=== PATIENT | male | born 1930 | race Hispanic/Latino ===

== ENCOUNTER 2016-10-14 19:45 | Emergency (ER) | payer MEDICARE ==
[2016-10-14 19:45] VITALS: BMI 33.5
[2016-10-14 19:51] VITALS: BP 146/78; RESP 18; TEMP 97.8; O2SAT 100
--- NOTE | 2016-10-14 20:17 | ED PDOC ---
HPI: Trauma/Fall - HPI Time Seen by Provider: 10/14/16 19:48 Chief Complaint (Nursing): Rib Injury History Per: Patient History/Exam Limitations: no limitations Onset/Duration Of Symptoms: Mins Injury Occurred (Timing): Just Before Arrival Severity: Moderate Associated Symptoms: denies: LOC Additional History Per: Patient, Family Additional Complaint(s): The pt is a 86yo male with PMHx of COPD, CABG, CAD, HTN presents to the ED for evaluation of left front chest and left elbow pain. Pt reports he was walking his dog and was distracted for a while and when the dog moved forward, pt lost his balance and fell forward. Pt denies any head injury, neck pain, numbness and tingling. Pt reports his chest pain is not present while resting, rather it only occurs when he is twisting his torso. Pt additionally denies loc, abdominal pain, nausea and vomiting. At present, offers no additional medical complaints. Past Medical History Reviewed: Historical Data, Nursing Documentation, Vital Signs Vital Signs: Last Vital Signs Temp 97.8 F 10/14/16 19:49 Pulse 68 10/14/16 19:49 Resp 18 10/14/16 19:49 BP 146/78 10/14/16 19:49 Pulse Ox 100 10/14/16 20:23 - Medical History PMH: Bronchitis, CAD, COPD, Emphysema, HTN, Hypercholesterolemia Denies: Pneumonia, Chronic Kidney Disease - Surgical History Surgical History: CABG, Cholecystectomy - Family History Family History: States: Unknown Family Hx - Home Medications Home Medications: Ambulatory Orders Medication Instructions Recorded Aspirin [Aspirin EC] 81 mg PO DAILY 09/27/14 Metoprolol Succinate [Toprol XL] 50 mg PO DAILY 09/27/14 Enalapril Maleate [Vasotec] 10 mg PO DAILY 10/14/16 Finasteride [Proscar] 10/14/16 Simvastatin [Zocor] 10/14/16 Terazosin [Hytrin] 1 tab PO DAILY 10/14/16 - Allergies Allergies/Adverse Reactions: Allergies Allergy/AdvReac Type Severity Reaction Status Date / Time No Known Allergies Allergy Verified 10/26/15 19:52 Review of Systems ROS Statement: Except As Marked, All Systems Reviewed And Found Negative Cardiovascular: Positive for: Chest Pain (left sided chest pain w/ movement) Musculoskeletal: Positive for: Arm Pain (left elbow pain) Physical Exam - Reviewed Nursing Documentation Reviewed: Yes Vital Signs Reviewed: Yes - Physical Exam Appears: Positive for: Well, Non-toxic, No Acute Distress Head Exam: Positive for: ATRAUMATIC, NORMAL INSPECTION, NORMOCEPHALIC Skin: Positive for: Normal Color, Warm, Dry Eye Exam: Positive for: Normal appearance, EOMI, PERRL Neck: Positive for: Normal, Supple Cardiovascular/Chest: Positive for: Regular Rate, Rhythm (mild to moderate left sided anterior chest wall tenderness ) Respiratory: Positive for: Normal Breath Sounds. Negative for: Respiratory Distress Pulses-Radial (L): 2+ Gastrointestinal/Abdominal: Positive for: Normal Exam, Soft, Other (no ecchymosis to abdomen noted). Negative for: Tenderness Extremity: Positive for: Normal ROM (full ROM actively left lebow), Capillary Refill (< 2 seconds), Other (ecchymosis noted in left elbow) Neurologic/Psych: Positive for: Alert, Oriented - ECG ECG: Positive for: Interpreted By Me ECG Rhythm: Positive for: Sinus Rhythm. Negative for: ST/T Changes Rate: 64 O2 Sat by Pulse Oximetry: 100 - Radiology X-Ray: Interpreted by Me (L elbow and L rib series x-ray) X-Ray Interpretation: No Acute Disease - Progress ED Course And Treament: Incentive spirometer given and RT gave pt. instructions on its proper use. Medical Decision Making Medical Decision Making: Time: 2001 Impression: Chest pain, left elbow pain s/p fall Plan: -- XR left elbow -- XR Chest and left ribs --Reassess Scribe Attestation: All records were documented by Tracy Villafana, acting as a Scribe for CIRILO Stovall. Provider Scribe Attestation: All medical record entries made by the Scribe were at my direction and personally dictated by me. I have reviewed the chart and agree that the record accurately reflects my personal performance of the history, physical exam, medical decision making, and the department course for this patient. I have also personally directed, reviewed, and agree with the discharge instructions and disposition. Disposition - Clinical Impression Clinical Impression: Contusion, chest wall, Elbow contusion - Patient ED Disposition Is Patient to be Admitted: No - Disposition Disposition: Routine/Home Disposition Time: 22:05 Condition: STABLE Instructions: How to Use an Incentive Spirometer (ED), Elbow Sprain (ED), Chest Wall Pain (ED)
[2016-10-14 23:49] VITALS: PULSE 64
--- NOTE | 2016-10-15 08:42 | RAD ---
PROCEDURE: Radiographs of the left elbow. HISTORY: trauma COMPARISON: No prior. FINDINGS: BONES: Normal. No fracture. JOINTS: Normal. No osteoarthritis. SOFT TISSUES: Normal. JOINT EFFUSION: None. OTHER FINDINGS: None IMPRESSION: Unremarkable radiographs of the left elbow.
--- NOTE | 2016-10-15 10:23 | CARD ---
APPROVED REPORT EKG Measurement Heart [id number] <Conclusion> Normal sinus rhythm Right bundle branch block Inferior infarct, age undetermined Abnormal ECG
== END 2016-10-14 22:18 | disposition home or self-care (01) ==
LOC: H.ER 19:45
DX: S20.212A Contusion of left front wall of thorax, initial encounter (principal); S50.02XA Contusion of left elbow, initial encounter; W01.0XXA Fall on same level from slipping, tripping and stumbling without subsequent striking against object, initial encounter; Y93.K1 Activity, walking an animal; Y92.480 Sidewalk as the place of occurrence of the external cause; I25.10 Atherosclerotic heart disease of native coronary artery without angina pectoris; I10 Essential (primary) hypertension; Z95.1 Presence of aortocoronary bypass graft; Z87.891 Personal history of nicotine dependence

== ENCOUNTER 2017-06-26 00:46 | Emergency (ER) | payer MEDICARE ==
[2017-06-26 00:46] VITALS: BMI 33.5
[2017-06-26 01:01] VITALS: PULSE 98; TEMP 98; O2SAT 100
[2017-06-26 01:09] VITALS: BP 168/79
[2017-06-26] MEDS ORDERED: Albuterol 0.083% Inhal Sol (2.5 mg/3 mL) UD ONE (01:47)
[2017-06-26] MEDS: Albuterol 0.083% Inhal Sol (2.5 mg/3 mL) UD INH ONE (01:48)
[2017-06-26 02:07] LABS: BASO # 0.1 K/uL (0.0-0.2); BASO % 0.9 % (0.0-2.0); EOS % 0.2 % (0.0-4.0); HEMOGLOBIN 13.6 g/dL (12.0-18.0); LYMPH % 42.8 % (20.0-40.0); MEAN CELL VOLUME 89.5 fl (80.0-94.0); MEAN CORPUSCULAR HEMOGLOBIN 28.8 pg (27.0-31.0); MEAN CORPUSCULAR HGB CONC 32.2 g/dL (33.0-37.0); MEAN PLATELET VOLUME 8.6 fl (7.2-11.7); MONO # 0.9 K/uL (0.0-0.8); MONO % 6.6 % (0.0-10.0); NEUT % 49.5 % (50.0-75.0); NRBC % 0.1 % (0.0-0.0); RBC 4.7 Mil/uL (4.40-5.90); RED CELL DISTRIBUTION WIDTH 14.7 % (11.5-14.5); WHITE BLOOD COUNT 14.1 K/uL (4.8-10.8)
--- NOTE | 2017-06-26 02:07 | ED PDOC ---
HPI: SOB/CHF/COPD Time Seen by Provider: 06/26/17 00:50 Chief Complaint (Nursing): Shortness Of Breath Chief Complaint (Provider): Shortness Of Breath History Per: Patient History/Exam Limitations: no limitations Onset/Duration Of Symptoms: Days (x3) Current Symptoms Are (Timing): Still Present Recently: Treated By A Physician Additional Complaint(s): Vic Garrett is an 86-year-old male with a past medical history of COPD, who presents to the emergency department complaining of shortness of breath for 3 days. Saw PMD days ago and was started on steroids. Patient reports using nebulizer treatments at home without improvement. States he woke up tonight very short of breath, prompting ED visit. PMD: Dr. Pietro Ruiz Order Worker: Dr. Graff Past Medical History Reviewed: Historical Data, Nursing Documentation, Vital Signs Vital Signs: Last Vital Signs Temp 98 F 06/26/17 00:58 Pulse 98 H 06/26/17 00:58 Resp 18 06/26/17 01:10 BP 168/79 H 06/26/17 00:58 Pulse Ox 100 06/27/17 04:24 - Medical History PMH: Bronchitis, CAD, COPD, Emphysema, HTN, Hypercholesterolemia Denies: Pneumonia, Chronic Kidney Disease - Surgical History Surgical History: CABG, Cholecystectomy - Family History Family History: States: Unknown Family Hx - Social History Ex-Smoker (has not smoked in the last 12 months): Yes - Home Medications Home Medications: Ambulatory Orders Medication Instructions Recorded Aspirin [Aspirin EC] 81 mg PO DAILY 09/27/14 Metoprolol Succinate [Toprol XL] 50 mg PO DAILY 09/27/14 Enalapril Maleate [Vasotec] 10 mg PO DAILY 10/14/16 Simvastatin [Zocor] 40 mg PO DAILY 10/14/16 Azithromycin [Zithromax] 250 mg PO DAILY #6 tab 06/26/17 predniSONE [predniSONE Tab] 20 mg PO DAILY 06/26/17 - Allergies Allergies/Adverse Reactions: Allergies Allergy/AdvReac Type Severity Reaction Status Date / Time No Known Allergies Allergy Verified 06/26/17 00:57 Review of Systems ROS Statement: Except As Marked, All Systems Reviewed And Found Negative Constitutional: Negative for: Fever Cardiovascular: Negative for: Chest Pain Respiratory: Positive for: Shortness of Breath. Negative for: Other (dyspnea) Physical Exam - Reviewed Nursing Documentation Reviewed: Yes Vital Signs Reviewed: Yes - Physical Exam Appears: Positive for: Non-toxic, No Acute Distress Head Exam: Positive for: ATRAUMATIC, NORMAL INSPECTION, NORMOCEPHALIC Skin: Positive for: Normal Color, Warm, Dry Eye Exam: Positive for: EOMI, Normal appearance, PERRL Neck: Positive for: Normal, Painless ROM Cardiovascular/Chest: Positive for: Regular Rate, Rhythm. Negative for: Murmur Respiratory: Positive for: Wheezing (wheezing noted; R > L lung patrick). Negative for: Respiratory Distress, Other (appears dyspneic) Gastrointestinal/Abdominal: Positive for: Normal Exam, Soft. Negative for: Tenderness Extremity: Positive for: Normal ROM. Negative for: Deformity Neurologic/Psych: Positive for: Alert, Oriented (x3), Other (speaking full sentences). Negative for: Motor/Sensory Deficits - Laboratory Results Result Diagrams: 06/26/17 01:49 06/26/17 01:49 - ECG O2 Sat by Pulse Oximetry: 100 (RA) Pulse Ox Interpretation: Normal Medical Decision Making Medical Decision Making: Time: 01:32 Initial Plan:short of breath --CMP --CBC w/ differential --Chest X-ray --Albuterol 2.5mg INH --Peak Flow pre/post treatment --Reevaluation Chest x-ray is negative, viewed by me. pt sleeping comfortably, not tachypneic. feels better. Labs reviewed, no significant abnormalities. Time: 4:53 Patient is medically stable for discharge. Scribe Attestation: Documented by Jovanna Radford, acting as a scribe for Hope Hugo MD Provider Scribe Attestation: All medical record entries made by the Scribe were at my direction and personally dictated by me. I have reviewed the chart and agree that the record accurately reflects my personal performance of the history, physical exam, medical decision making, and the department course for this patient. I have also personally directed, reviewed, and agree with the discharge instructions and disposition. Disposition - Clinical Impression Clinical Impression: COPD (chronic obstructive pulmonary disease) - Patient ED Disposition Is Patient to be Admitted: No Counseled Patient/Family Regarding: Studies Performed, Diagnosis, Need For Followup - Disposition Referrals: Pietro Ruiz MD [Primary Care Provider] - Disposition: Routine/Home Disposition Time: 03:00 Condition: IMPROVED Additional Instructions: follow up with your primary doctor in 2 days return to the ED with any worsening or concerning symptoms Prescriptions: Azithromycin [Zithromax] 250 mg PO DAILY #6 tab Instructions: COPD (Chronic Obstructive Pulmonary Disease) (ED) Forms: [employer] (Gabonese)
[2017-06-26 02:18] LABS: ALB/GLOB RATIO 1.4 (1.0-2.1); ALT/SGPT 33 U/L (21-72); AST/SGOT 22 U/L (17-59); BLOOD UREA NITROGEN 18 mg/dl (9-20); CALCIUM 8.9 mg/dL (8.4-10.2); GFR AFRICAN-AMERICAN > 60; GFR NON-AFRICAN AMERICAN > 60
[2017-06-26 03:14] VITALS: RESP 18
--- NOTE | 2017-06-26 11:24 | RAD ---
HISTORY: short of breath COMPARISON: Chest radiograph dated 10/25/2015 TECHNIQUE: Chest PA and lateral FINDINGS: LUNGS: Stable chronic prominence of the bilateral interstitial markings. No focal consolidation. PLEURA: No significant pleural effusion identified. No pneumothorax apparent. CARDIOVASCULAR: Prior sternotomy with sternal wires and surgical clips redemonstrated. Atherosclerotic aortic calcifications. Cardiomediastinal silhouette unchanged. OSSEOUS STRUCTURES: Unchanged. VISUALIZED UPPER ABDOMEN: Right upper quadrant surgical clips redemonstrated. OTHER FINDINGS: None. IMPRESSION: Stable chronic prominence of the bilateral interstitial markings. No focal consolidation or pleural effusion
== END 2017-06-26 05:50 | disposition home or self-care (01) ==
LOC: H.ER 00:46
DX: J44.9 Chronic obstructive pulmonary disease, unspecified (principal); E78.00 Pure hypercholesterolemia, unspecified; I10 Essential (primary) hypertension; I25.10 Atherosclerotic heart disease of native coronary artery without angina pectoris; Z79.82 Long term (current) use of aspirin; Z95.1 Presence of aortocoronary bypass graft

== ENCOUNTER 2017-09-08 07:36 | Inpatient (IN) | payer MEDICARE ==
[2017-09-08 07:49] VITALS: BMI 36.0
[2017-09-08] MEDS ORDERED: Sodium Chloride 0.9% 500 ML IV STA (08:14)
--- NOTE | 2017-09-08 08:21 | ED PDOC ---
HPI: Chest Pain Time Seen by Provider: 09/08/17 07:50 Chief Complaint (Nursing): Chest Pain Chief Complaint (Provider): Chest Pain History Per: Patient, Family (son) History/Exam Limitations: no limitations Onset/Duration Of Symptoms: Days (x1) Current Symptoms Are (Timing): Still Present Additional Complaint(s): 87 year old male with medical history of hypertension, diabetes and hypercholesterolemia, presents to the emergency department with son for an evaluation of left-sided chest pain associated with bilateral arm pain ongoing since last night. Son reported patient has been depressed since a few weeks ago which has been causing his blood pressure to rise. Patient denied any nausea, vomiting, diarrhea, abdominal pain, shortness of breath, headache, numbness, tingling, suicidal or homicidal ideation. Of note, patient was recently seen in ED for congestion issues. PMD: Pietro Ruiz MD Cardio: Merrill Inman MD Past Medical History Vital Signs: Last Vital Signs Temp 98.3 F 09/08/17 07:48 Pulse 62 09/08/17 09:44 Resp 16 09/08/17 09:44 BP 142/81 09/08/17 09:44 Pulse Ox 95 09/08/17 10:53 - Medical History PMH: Bronchitis, CAD, COPD, Emphysema, HTN, Hypercholesterolemia Denies: Pneumonia, Chronic Kidney Disease - Surgical History Surgical History: CABG, Cholecystectomy - Family History Family History: States: Unknown Family Hx - Social History Current smoker - smoking cessation education provided: No Alcohol: None Drugs: Denies - Home Medications Home Medications: Ambulatory Orders Medication Instructions Recorded Aspirin [Aspirin EC] 81 mg PO DAILY 09/27/14 Metoprolol Succinate [Toprol XL] 50 mg PO DAILY 09/27/14 Enalapril Maleate [Vasotec] 10 mg PO DAILY 10/14/16 Simvastatin [Zocor] 40 mg PO DAILY 10/14/16 Azithromycin [Zithromax] 250 mg PO DAILY #6 tab 06/26/17 predniSONE [predniSONE Tab] 20 mg PO DAILY 06/26/17 - Allergies Allergies/Adverse Reactions: Allergies Allergy/AdvReac Type Severity Reaction Status Date / Time No Known Allergies Allergy Verified 06/26/17 00:57 Review of Systems ROS Statement: Except As Marked, All Systems Reviewed And Found Negative Cardiovascular: Positive for: Chest Pain (left-sided) Respiratory: Negative for: Shortness of Breath Gastrointestinal: Negative for: Nausea, Vomiting, Abdominal Pain, Diarrhea Musculoskeletal: Positive for: Arm Pain (bilateral) Neurological: Negative for: Numbness (or tingling), Headache Psych: Positive for: Depression Physical Exam - Reviewed Nursing Documentation Reviewed: Yes Vital Signs Reviewed: Yes - Physical Exam Appears: Positive for: Non-toxic, No Acute Distress Head Exam: Positive for: ATRAUMATIC, NORMAL INSPECTION, NORMOCEPHALIC Skin: Positive for: Normal Color Eye Exam: Positive for: Normal appearance ENT: Positive for: Normal ENT Inspection Neck: Positive for: Normal Cardiovascular/Chest: Positive for: Regular Rate, Rhythm Respiratory: Positive for: Normal Breath Sounds. Negative for: Decreased Breath Sounds, Respiratory Distress Gastrointestinal/Abdominal: Positive for: Normal Exam, Soft. Negative for: Tenderness Back: Positive for: Normal Inspection. Negative for: L CVA Tenderness, R CVA Tenderness Extremity: Positive for: Normal ROM (upper/lower). Negative for: Pedal Edema ( bilateral), Calf Tenderness (bilateral) Neurologic/Psych: Positive for: Alert, Oriented - Laboratory Results Result Diagrams: 09/08/17 08:30 09/08/17 08:30 Interpretation Of Abn Labs: no acute - ECG ECG: Positive for: Interpreted By Me, Viewed By Me Interpretation Of Abn EKG: RBBB O2 Sat by Pulse Oximetry: 95 (RA) Pulse Ox Interpretation: Normal - Radiology X-Ray: Read By Radiologist X-Ray Interpretation: No Acute Disease - Progress ED Course And Treament: [id number]: Stable. AAOx3. Pain free. Tolerated PO. Spoke with [facility] resident. Will need admit for ACS workup as pt. with multiple risk factors. Medical Decision Making Medical Decision Making: Initial Impression: Chest pain; Bilateral arm pain Initial Plan: * EKG * CMP * Troponin I * CBC * CXR * Aspirin 325mg PO * NS 500ml IV per 100mls/hr Time: 1011 --CXR FINDINGS: LUNGS: No focal consolidation so far as can be seen in this radiograph with patient in apical lordotic positioning PLEURA: No significant pleural effusion identified, no pneumothorax apparent. CARDIOVASCULAR: Re- demonstrated are sternotomy wires. Heart size is within range of normal. OSSEOUS STRUCTURES: No significant abnormalities. VISUALIZED UPPER ABDOMEN: Normal. OTHER FINDINGS: None. IMPRESSION: No acute infiltrates so far as can be seen as detailed above Scribe Attestation: Documented by Diamond Harris, acting as a scribe for Neeraj Mueller MD. Provider Scribe Attestation: All medical record entries made by the Scribe were at my direction and personally dictated by me. I have reviewed the chart and agree that the record accurately reflects my personal performance of the history, physical exam, medical decision making, and the department course for this patient. I have also personally directed, reviewed, and agree with the discharge instructions and disposition. Disposition - Clinical Impression Clinical Impression: Chest pain - Patient ED Disposition Is Patient to be Admitted: Yes Counseled Patient/Family Regarding: Studies Performed, Diagnosis - Disposition Disposition Time: 12:13 Condition: FAIR - Pt Status Changed To: Hospital Disposition Of: Observation - POA Present On Arrival: None
[2017-09-08 08:38] LABS: BASO # 0.1 K/uL (0.0-0.2); BASO % 0.8 % (0.0-2.0); EOS # 0.2 K/uL (0.0-0.7); EOS % 2.1 % (0.0-4.0); HEMOGLOBIN 14.6 g/dL (12.0-18.0); LYMPH # 4.9 K/uL (1.0-4.3); LYMPH % 49.2 % (20.0-40.0); MEAN CELL VOLUME 89.8 fl (80.0-94.0); MEAN CORPUSCULAR HEMOGLOBIN 30.1 pg (27.0-31.0); MEAN CORPUSCULAR HGB CONC 33.5 g/dL (33.0-37.0); MONO # 0.6 K/uL (0.0-0.8); MONO % 6.2 % (0.0-10.0); NEUT # 4.1 K/uL (1.8-7.0); NEUT % 41.7 % (50.0-75.0); NRBC % 0.1 % (0.0-0.0); RBC 4.86 Mil/uL (4.40-5.90); RED CELL DISTRIBUTION WIDTH 15.4 % (11.5-14.5); WHITE BLOOD COUNT 9.9 K/uL (4.8-10.8)
[2017-09-08 08:49] LABS: ALB/GLOB RATIO 1.3 (1.0-2.1); ALBUMIN 4.1 g/dL (3.5-5.0); ALT/SGPT 34 U/L (21-72); AST/SGOT 24 U/L (17-59); BLOOD UREA NITROGEN 13 mg/dl (9-20); CALCIUM 9.2 mg/dL (8.4-10.2); GFR AFRICAN-AMERICAN > 60; GFR NON-AFRICAN AMERICAN > 60
--- NOTE | 2017-09-08 10:13 | RAD ---
HISTORY: dyspnea COMPARISON: Comparison chest 06/26/2017. Study is limited due to apical lordotic patient positioning FINDINGS: LUNGS: No focal consolidation so far as can be seen in this radiograph with patient in apical lordotic positioning PLEURA: No significant pleural effusion identified, no pneumothorax apparent. CARDIOVASCULAR: Re- demonstrated are sternotomy wires. Heart size is within range of normal. OSSEOUS STRUCTURES: No significant abnormalities. VISUALIZED UPPER ABDOMEN: Normal. OTHER FINDINGS: None. IMPRESSION: No acute infiltrates so far as can be seen as detailed above
--- NOTE | 2017-09-08 10:35 | CARD ---
APPROVED REPORT EKG Measurement Heart [id number] [id number] <Conclusion> Normal sinus rhythm Right bundle branch block Inferior infarct, age undetermined Abnormal ECG
--- NOTE | 2017-09-08 12:47 | CP.PCM.HP ---
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 Patient has strong cardiac hx including CABG x4 and IWMI. He also states that since his 2 weeks ago he has been feeling "worse". Denies SOB, palpitations, fever, vomiting , nausea, headache, changes in urination or stools. As per patient he has been taking all his meds as prescribed. 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 At this time patient denies CP, he admits heartburn, acid reflux and abd bloating. + Flatus. ROS: 14 systems negative other than HPI MHx: CAD, HTN, HLD SHx: CABG, GB surgery, nose surgery for trauma in the distant past, Cholecystectomy Allergies: NKDA Medications: As per list Family Hx: reviewed, no relevant findings Social Hx: -Lives with family -Denies current tobacco, quit 30 years ago -Occasional EtOH(wine) Surrogate Decision Maker: Iain Garrett, Son, Present on Admission - Present on Admission Any Indicators Present on Admission: No Past Patient History - Past Medical History & Family History Past Medical History?: Yes - Past Social History Alcohol: None Drugs: Denies - CARDIAC Hx Cardiac Disorders: Yes (HTN, high cholesterol, cardaic bypass) - NEUROLOGICAL Hx Neurological Disorder: No - HEENT Hx HEENT Problems: No Other/Comment: Broken nose-remote. - RENAL Hx Chronic Kidney Disease: No - ENDOCRINE/METABOLIC Hx Endocrine Disorders: No - HEMATOLOGICAL/ONCOLOGICAL Hx Blood Disorders: No - INTEGUMENTARY Hx Dermatological Problems: No - MUSCULOSKELETAL/RHEUMATOLOGICAL Hx Musculoskeletal Disorders: Yes (Joint pain) Hx Falls: No - GASTROINTESTINAL Hx Gastrointestinal Disorders: Yes (GERD) Hx Gastroesophageal Reflux: Yes Other/Comment: Hx Cholecystectomy - GENITOURINARY/GYNECOLOGICAL Hx Genitourinary Disorders: No - PSYCHIATRIC Hx Psychophysiologic Disorder: No Hx Substance Use: No - SURGICAL HISTORY Hx Cholecystectomy: Yes Hx Coronary Artery Bypass Graft: Yes - ANESTHESIA Hx Anesthesia: Yes Hx Anesthesia Reactions: No Meds Allergies/Adverse Reactions: Allergies Allergy/AdvReac Type Severity Reaction Status Date / Time No Known Allergies Allergy Verified 06/26/17 00:57 Physical Exam - Constitutional Appears: Non-toxic, No Acute Distress - Head Exam Head Exam: NORMAL INSPECTION - Eye Exam Eye Exam: EOMI, PERRL - ENT Exam ENT Exam: Mucous Membranes Moist - Respiratory Exam Respiratory Exam: Clear to Auscultation Bilateral, NORMAL BREATHING PATTERN. absent: Chest Wall Tenderness, Decreased Breath Sounds, Rales, Wheezes, Respiratory Distress - Cardiovascular Exam Cardiovascular Exam: REGULAR RHYTHM, +S1, +S2, Systolic Murmur. absent: Gallop - GI/Abdominal Exam GI & Abdominal Exam: Distended (Slightly hypertympanic), Normal Bowel Sounds, Soft, Tenderness (MIld, diffuse). absent: Guarding, Rebound, Rigid - Extremities Exam Extremities exam: Positive for: normal capillary refill, pedal edema (Trace). Negative for: calf tenderness, joint swelling, normal inspection (Dry scaly skin B/L legs) - Neurological Exam Neurological exam: Alert, Normal Gait, Oriented x3 - Psychiatric Exam Psychiatric exam: Depressed, Normal Affect - Skin Skin Exam: Normal Color, Warm Results - Vital Signs Recent Vital Signs: Last Vital Signs Temp 98 F 09/08/17 12:36 Pulse 67 09/08/17 12:36 Resp 18 09/08/17 12:36 BP 150/72 09/08/17 12:36 Pulse Ox 100 09/08/17 12:34 - Labs Result Diagrams: 09/08/17 08:30 09/08/17 08:30 Labs: Laboratory Results - last 24 hr 09/08/17 09/08/17 08:30 08:30 WBC 9.9 RBC 4.86 Hgb 14.6 Hct 43.6 MCV 89.8 MCH 30.1 MCHC 33.5 RDW 15.4 H Plt Count 118 L D MPV 9.0 Neut % (Auto) 41.7 L Lymph % (Auto) 49.2 H [place] % (Auto) 6.2 Eos % (Auto) 2.1 Baso % (Auto) 0.8 Neut # (Auto) 4.1 Lymph # (Auto) 4.9 H [place] # (Auto) 0.6 Eos # (Auto) 0.2 Baso # (Auto) 0.1 Sodium 141 Potassium 4.3 Chloride 100 Carbon Dioxide 30 Anion Gap 15 BUN 13 Creatinine 0.9 Est GFR ( Amer) > 60 Est GFR (Non-Af Amer) > 60 Random Glucose 122 H Calcium 9.2 Total Bilirubin 0.6 AST 24 ALT 34 Alkaline Phosphatase 66 Troponin I < 0.0120 Total Protein 7.2 Albumin 4.1 Globulin 3.1 Albumin/Globulin Ratio 1.3 Assessment & Plan - Assessment and Plan (Free Text) Assessment: 87 y/o M with PMHx of CAD, HTN admitted with CP like symptoms to r/o ACS Chest pain/Discomfort Trop x1 normal 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
[2017-09-08] MEDS ORDERED: Simethicone 80 mg Chewtab PO PRN (12:51)
[2017-09-08] MEDS: Simethicone 80 mg Chewtab PO SCH (16:49)
[2017-09-08] MEDS: Pantoprazole 40 mg EC Tab PO SCH (16:49)
[2017-09-09 08:16] LABS: BLOOD UREA NITROGEN 14 mg/dl (9-20); CALCIUM 9.6 mg/dL (8.4-10.2); GFR AFRICAN-AMERICAN > 60; GFR NON-AFRICAN AMERICAN > 60
[2017-09-09] MEDS: Simethicone 80 mg Chewtab PO SCH ×3 (09:18→16:49)
[2017-09-09] MEDS: Pantoprazole 40 mg EC Tab PO SCH (09:19)
[2017-09-09] MEDS: Metoprolol Succinate 50 mg XL Tab PO SCH (09:19)
[2017-09-09] MEDS: Enoxaparin 40 mg Syringe SC SCH (09:22)
--- NOTE | 2017-09-09 10:57 | CP.PCM.PN ---
Subjective - Date & Time of Evaluation Date of Evaluation: 09/09/17 Time of Evaluation: 10:00 - Subjective Subjective: Pt seen and examined this am. Denies chest discomfort. Reports that he is still belching and has acid taste in mouth. No complaints. Objective - Vital Signs/Intake and Output Vital Signs (last 24 hours): Temp Pulse Resp BP Pulse Ox 98.3 F 70 20 160/63 H 97 09/09/17 08:35 09/09/17 09:19 09/09/17 08:35 09/09/17 09:19 09/09/17 08:35 - Medications Medications: Current Medications Aspirin (Ecotrin) 81 mg PO DAILY [facility] Last Admin: 09/09/17 09:18 Dose: 81 mg Atorvastatin Calcium (Lipitor) 20 mg PO DAILY [facility] Last Admin: 09/09/17 09:18 Dose: 20 mg Enalapril Maleate (Vasotec) 10 mg PO DAILY [facility] Last Admin: 09/09/17 09:19 Dose: 10 mg Enoxaparin Sodium (Lovenox) 40 mg SC DAILY [facility] PRN Reason: Protocol Last Admin: 09/09/17 09:22 Dose: 40 mg Metoprolol Succinate (Toprol Xl) 50 mg PO DAILY [facility] Last Admin: 09/09/17 09:19 Dose: 50 mg Ondansetron HCl (Zofran Inj) 4 mg IVP Q6 PRN PRN Reason: Nausea/Vomiting Pantoprazole Sodium (Protonix Ec Tab) 40 mg PO DAILY [facility] Last Admin: 09/09/17 09:19 Dose: 40 mg Simethicone (Mylicon Chew Tab) 80 mg PO TID [facility] Last Admin: 09/09/17 09:18 Dose: 80 mg - Labs Labs: 09/08/17 08:30 09/09/17 07:01 - Constitutional Appears: Well, Non-toxic, No Acute Distress - Eye Exam Eye Exam: Normal appearance - ENT Exam ENT Exam: Mucous Membranes Moist - Respiratory Exam Respiratory Exam: Clear to Ausculation Bilateral. absent: Rales, Wheezes - Cardiovascular Exam Cardiovascular Exam: REGULAR RHYTHM, +S1, +S2, Murmur (Systolic ejection murmur) - GI/Abdominal Exam GI & Abdominal Exam: Soft. absent: Distended, Tenderness Additional comments: Pt noted to be belching occasionally - Neurological Exam Neurological Exam: Alert, Awake, Oriented x3 - Psychiatric Exam Psychiatric exam: Normal Affect - Skin Skin Exam: Normal Color Assessment and Plan - Assessment and Plan (Free Text) Assessment: Assessment: 87 y/o M with PMHx of CAD, HTN admitted with CP like symptoms to r/o ACS. Likely GERD. Awaiting ECHO and Cardiac Consultation. 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
--- NOTE | 2017-09-09 11:51 | CP.PCM.CON ---
History of Present Illness - History of Present Illness History of Present Illness: 85 y/o male with PMHx significant for CAD, HTN, and HLD who comes in c/o heart burn, abdominal bloating and chest wall pain. Patient has strong cardiac hx including CABG x4 and IWMI. Denies SOB, palpitations, fever, vomiting, nausea, headache. he has been taking all his meds as prescribed. Nuclear Stress Test 2014 showed old IWMI and EF at rest of 72%. At this time patient denies CP, he admits heartburn, acid reflux. Denies any chest discomfort at present EKG: CRBBB Troponin: neg x 3 PMH: CAD, HTN, HLD CABG, GB surgery, nose surgery Cholecystectomy Past Patient History - Past Medical History & Family History Past Medical History?: Yes - Past Social History Smoking Status: Former Smoker - CARDIAC Hx Cardiac Disorders: Yes (HTN, high cholesterol, cardaic bypass) Hx Hypertension: Yes - PULMONARY Hx Respiratory Disorders: Yes (COPD) Hx Bronchitis: Yes Hx Chronic Obstructive Pulmonary Disease (COPD): Yes - NEUROLOGICAL Hx Neurological Disorder: No - HEENT Hx HEENT Problems: No Other/Comment: Broken nose-remote. - RENAL Hx Chronic Kidney Disease: No - ENDOCRINE/METABOLIC Hx Endocrine Disorders: No - HEMATOLOGICAL/ONCOLOGICAL Hx Blood Disorders: No Hx AIDS: No Hx Human Immunodeficiency Virus (HIV): No - INTEGUMENTARY Hx Dermatological Problems: No Other/Comment: dry skin on bilateral lower extremities - MUSCULOSKELETAL/RHEUMATOLOGICAL Hx Musculoskeletal Disorders: Yes (Joint pain) Hx Falls: No - GASTROINTESTINAL Hx Gastrointestinal Disorders: Yes (GERD) Hx Gastroesophageal Reflux: Yes Other/Comment: Hx Cholecystectomy - GENITOURINARY/GYNECOLOGICAL Hx Genitourinary Disorders: No - PSYCHIATRIC Hx Psychophysiologic Disorder: No Hx Substance Use: No - SURGICAL HISTORY Hx Surgeries: Yes Hx Cholecystectomy: Yes Hx Coronary Artery Bypass Graft: Yes - ANESTHESIA Hx Anesthesia: Yes Hx Anesthesia Reactions: No Hx Malignant Hyperthermia: No Has any member of the family had a problem w/ anesthesia?: No Meds Allergies/Adverse Reactions: Allergies Allergy/AdvReac Type Severity Reaction Status Date / Time No Known Allergies Allergy Verified 06/26/17 00:57 - Medications Medications: Current Medications Aspirin (Ecotrin) 81 mg PO DAILY [facility] Last Admin: 09/09/17 09:18 Dose: 81 mg Atorvastatin Calcium (Lipitor) 20 mg PO DAILY [facility] Last Admin: 09/09/17 09:18 Dose: 20 mg Enalapril Maleate (Vasotec) 10 mg PO DAILY [facility] Last Admin: 09/09/17 09:19 Dose: 10 mg Enoxaparin Sodium (Lovenox) 40 mg SC DAILY [facility] PRN Reason: Protocol Last Admin: 09/09/17 09:22 Dose: 40 mg Metoprolol Succinate (Toprol Xl) 50 mg PO DAILY [facility] Last Admin: 09/09/17 09:19 Dose: 50 mg Ondansetron HCl (Zofran Inj) 4 mg IVP Q6 PRN PRN Reason: Nausea/Vomiting Pantoprazole Sodium (Protonix Ec Tab) 40 mg PO DAILY [facility] Last Admin: 09/09/17 09:19 Dose: 40 mg Simethicone (Mylicon Chew Tab) 80 mg PO TID [facility] Last Admin: 09/09/17 09:18 Dose: 80 mg Physical Exam - Constitutional Appears: Well - Head Exam Head Exam: NORMAL INSPECTION - Eye Exam Eye Exam: Normal appearance - ENT Exam ENT Exam: Normal Exam - Neck Exam Neck exam: Positive for: Normal Inspection - Respiratory Exam Respiratory Exam: NORMAL BREATHING PATTERN - Cardiovascular Exam Cardiovascular Exam: REGULAR RHYTHM - GI/Abdominal Exam GI & Abdominal Exam: Normal Bowel Sounds Results - Vital Signs Recent Vital Signs: Last Vital Signs Temp 98.3 F 09/09/17 08:35 Pulse 70 09/09/17 09:19 Resp 20 09/09/17 08:35 BP 160/63 H 09/09/17 09:19 Pulse Ox 97 09/09/17 08:35 - Labs Result Diagrams: 09/08/17 08:30 09/09/17 07:01 Labs: Laboratory Results - last 24 hr 09/08/17 09/08/17 09/08/17 08:30 15:42 20:30 Plt Count 118 L D Sodium Potassium Chloride Carbon Dioxide Anion Gap BUN Creatinine Est GFR ( Amer) Est GFR (Non-Af Amer) POC Glucose (mg/dL) 93 Random Glucose Calcium Troponin I < 0.0120 09/09/17 07:01 Plt Count Sodium 144 Potassium 4.5 Chloride 99 Carbon Dioxide 32 H Anion Gap 18 BUN 14 Creatinine 1.0 Est GFR ( Amer) > 60 Est GFR (Non-Af Amer) > 60 POC Glucose (mg/dL) Random Glucose 114 H Calcium 9.6 Troponin I < 0.0120 Assessment & Plan (1) Chest pain Assessment and Plan: Pains appear to be more GI related than cardiac Status: Acute (2) Acute bronchitis with chronic obstructive pulmonary disease (COPD) Status: Acute Priority: High (3) COPD (chronic obstructive pulmonary disease) Status: Acute (4) HLD (hyperlipidemia) Status: Chronic (5) HTN (hypertension) Status: Chronic
[2017-09-09] MEDS ORDERED: UMECLIDINIUM BROMIDE 62.5 MCG IH SCH (22:00)
[2017-09-10] MEDS ORDERED: UMECLIDINIUM BROMIDE 62.5 MCG IH PRN (07:38)
[2017-09-10] MEDS ORDERED: Albuterol-Ipratrop 3 mg / 0.5 (3 ml) UD INH PRN ×2 (07:40→13:33)
--- NOTE | 2017-09-10 09:31 | CP.PCM.PN ---
Subjective - Date & Time of Evaluation Date of Evaluation: 09/10/17 Time of Evaluation: 08:50 - Subjective Subjective: Appears despondent (lost his of 63 yrs 2 Wks back) Reports loss of appetite ( has been sleeping well) Reports achy feeling in Lt and Rt infraclvicular areas Tenderness in these spots+ BP 146/70 mm Hg Ejection syst murmur of AV sclerosis+ S2 present Echo today to asses AO valve EKG and normal Troponin levels rule out ACS Should be ready for D/C after echo Objective - Vital Signs/Intake and Output Vital Signs (last 24 hours): Temp Pulse Resp BP Pulse Ox 98.1 F 65 18 161/83 H 97 09/10/17 08:06 09/10/17 08:06 09/10/17 08:06 09/10/17 08:06 09/10/17 08:06 - Medications Medications: Current Medications Acetaminophen (Tylenol 325mg Tab) 650 mg PO Q6 PRN PRN Reason: Headache Last Admin: 09/09/17 14:23 Dose: 650 mg Albuterol/Ipratropium (Duoneb 3 Mg/0.5 Mg (3 Ml) Ud) 3 ml INH RQ4 [facility] Aspirin (Ecotrin) 81 mg PO DAILY [facility] Last Admin: 09/09/17 09:18 Dose: 81 mg Atorvastatin Calcium (Lipitor) 20 mg PO DAILY [facility] Last Admin: 09/09/17 09:18 Dose: 20 mg Enalapril Maleate (Vasotec) 10 mg PO DAILY [facility] Last Admin: 09/09/17 09:19 Dose: 10 mg Enoxaparin Sodium (Lovenox) 40 mg SC DAILY [facility] PRN Reason: Protocol Last Admin: 09/09/17 09:22 Dose: 40 mg Home Med (Fluticasone/Vilanterol [Breo Ellipta 100-25 Mcg Inh]) 1 each IH DAILY [facility] Home Med (Umeclidinium [place] [Incruse Ellipta]) 62.5 mcg IH HS [facility] Metoprolol Succinate (Toprol Xl) 50 mg PO DAILY [facility] Last Admin: 09/09/17 09:19 Dose: 50 mg Ondansetron HCl (Zofran Inj) 4 mg IVP Q6 PRN PRN Reason: Nausea/Vomiting Pantoprazole Sodium (Protonix Ec Tab) 40 mg PO DAILY [facility] Last Admin: 09/09/17 09:19 Dose: 40 mg Simethicone (Mylicon Chew Tab) 80 mg PO TID [facility] Last Admin: 09/09/17 16:49 Dose: 80 mg - Labs Labs: 09/08/17 08:30 09/09/17 07:01
[2017-09-10] MEDS: FLUTICASONE IH SCH (09:32)
[2017-09-10] MEDS: VILANTEROL IH SCH (09:32)
[2017-09-10] MEDS: Enoxaparin 40 mg Syringe SC SCH (09:33)
[2017-09-10] MEDS: Simethicone 80 mg Chewtab PO SCH ×3 (09:35→17:33)
[2017-09-10] MEDS: Pantoprazole 40 mg EC Tab PO SCH (09:35)
[2017-09-10] MEDS: Metoprolol Succinate 50 mg XL Tab PO SCH (09:36)
[2017-09-10] MEDS: Albuterol-Ipratrop 3 mg / 0.5 (3 ml) UD INH SCH ×2 (09:52→12:00)
--- NOTE | 2017-09-10 10:07 | CP.PCM.PN ---
Addendum entered and electronically signed by Curtis Sanchez MD 09/10/17 18:06: Pt once again complained of epigastric pain after eating lunch. GI consults placed. Vitals stable. Given Maalox. Original Note: <Curtis Sanchez - Last Filed: 09/10/17 13:22> Subjective - Date & Time of Evaluation Date of Evaluation: 09/10/17 Time of Evaluation: 08:00 - Subjective Subjective: Pt seen and evaluated this am. Reports sternal chest pain and epigastric pain. States he is feeling very sad after the of his . Plan discussed with patient. Bedside EKG, Duoonebs ordered. On re-evaluation at noon, pt was seen sitting up in bed, stating his chest pain had resolved after the nebulizer treatments. Objective - Vital Signs/Intake and Output Vital Signs (last 24 hours): Temp Pulse Resp BP Pulse Ox 98.1 F 65 18 161/83 H 97 09/10/17 09:40 09/10/17 09:36 09/10/17 08:06 09/10/17 09:36 09/10/17 08:06 - Medications Medications: Current Medications Acetaminophen (Tylenol 325mg Tab) 650 mg PO Q6 PRN PRN Reason: Headache Last Admin: 09/09/17 14:23 Dose: 650 mg Albuterol/Ipratropium (Duoneb 3 Mg/0.5 Mg (3 Ml) Ud) 3 ml INH RQ4 [facility] Last Admin: 09/10/17 09:52 Dose: 3 ml Aspirin (Ecotrin) 81 mg PO DAILY [facility] Last Admin: 09/10/17 09:31 Dose: 81 mg Atorvastatin Calcium (Lipitor) 20 mg PO DAILY [facility] Last Admin: 09/10/17 09:33 Dose: 20 mg Enalapril Maleate (Vasotec) 10 mg PO DAILY [facility] Last Admin: 09/10/17 09:36 Dose: 10 mg Enoxaparin Sodium (Lovenox) 40 mg SC DAILY [facility] PRN Reason: Protocol Last Admin: 09/10/17 09:33 Dose: 40 mg Home Med (Fluticasone/Vilanterol [Breo Ellipta 100-25 Mcg Inh]) 1 each IH DAILY [facility] Last Admin: 09/10/17 09:32 Dose: 1 each Home Med (Umeclidinium [place] [Incruse Ellipta]) 62.5 mcg IH HS [facility] Metoprolol Succinate (Toprol Xl) 50 mg PO DAILY [facility] Last Admin: 09/10/17 09:36 Dose: 50 mg Ondansetron HCl (Zofran Inj) 4 mg IVP Q6 PRN PRN Reason: Nausea/Vomiting Pantoprazole Sodium (Protonix Ec Tab) 40 mg PO DAILY [facility] Last Admin: 09/10/17 09:35 Dose: 40 mg Simethicone (Mylicon Chew Tab) 80 mg PO TID [facility] Last Admin: 09/10/17 09:35 Dose: 80 mg - Labs Labs: 09/08/17 08:30 09/09/17 07:01 - Constitutional Appears: Well, No Acute Distress - Head Exam Head Exam: NORMAL INSPECTION - Eye Exam Eye Exam: Normal appearance - ENT Exam ENT Exam: Mucous Membranes Moist - Respiratory Exam Respiratory Exam: Chest Wall Tenderness, Wheezes (Diffuse scattered end expriatory wheezing). absent: Accessory Muscle Use, Rales - Cardiovascular Exam Cardiovascular Exam: REGULAR RHYTHM, +S1, +S2. absent: Murmur - GI/Abdominal Exam GI & Abdominal Exam: Soft, Tenderness (Epigastric tenderness) - Extremities Exam Extremities Exam: Normal Inspection - Neurological Exam Neurological Exam: Alert, Awake, Oriented x3 Assessment and Plan - Assessment and Plan (Free Text) Assessment: 87 y/o M with PMHx of CAD, HTN admitted with CP like symptoms to r/o ACS. Likely GERD. Awaiting ECHO and Cardiac Clearance. Reported chest pain/epigastric pain this morning that was reproducible to palpation and was noted to have wheezing on auscultation. Symptoms resolved after receiving duoneb treatment and motrin po (with food). Started on antidepressants. 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 Poss due GERD since patient admits heartburn vs Anxiety related vs costochondritis Repeat EKG today no acute changes, f/u troponin C/W Protonix PO daily Abdominal Pain, Bloating Chronic, comes and goes Protonix daily Simethicone TID Work up as outpatient Amylase, Lipase ordered as pt was tender to palpation, f/u results COPD Restarted in home meds Duonebs x1 LABA + Inhaled steroid Depression Pt reports feeling very sad for weeks after the his Spoke with son yesterday, who believe his father was depressed Started on Paxil 10mg daily No suicidal/homicidal ideations CAD Last lexican 3 y/a: Good exercise tolerance, old IWMI, EF 72% Current symptoms unlike related to CAD C/W ACEi, ASA and BB Cardiology Consulted Echo ordered HTN, chronic C/W home meds Stable Trombocytopenia Chronic Mild NO active bleeding Monitor DVT prophylaxis Lovenox 40 mg daily <Pietro Ruiz - Last Filed: 09/12/17 07:06> Objective - Vital Signs/Intake and Output Vital Signs (last 24 hours): Temp Pulse Resp BP Pulse Ox 98.4 F 64 18 137/73 94 L 09/11/17 07:46 09/11/17 08:42 09/11/17 07:46 09/11/17 08:42 09/11/17 07:46 - Labs Labs: 09/08/17 08:30 09/09/17 07:01 Attending/Attestation - Attestation I have personally seen and examined this patient.: Yes I have fully participated in the care of the patient.: Yes I have reviewed all pertinent clinical information, including history, physical exam and plan: Yes
[2017-09-10 17:09] LABS: TROPONIN I 0.013 ng/mL (0.00-0.120)
[2017-09-10] MEDS ORDERED: Alum-Mag Hydrox-Simethicone Susp (30 mL) PO ONE (18:07)
--- NOTE | 2017-09-10 19:41 | CARD ---
APPROVED REPORT EXAM: Two-dimensional and M-mode echocardiogram with Doppler and color Doppler. Other Information Quality : GoodRhythm : NSR INDICATION Aortic Valve Disease 2D DIMENSIONS IVSd0.96 (0.7-1.1cm)LVDd4.30 (3.9-5.9cm) LVOT Diameter1.76 (1.8-2.4cm)PWd0.95 (0.7-1.1cm) IVSs0.99 (0.8-1.2cm)LVDs3.40 (2.5-4.0cm) FS (%) 21.1 %PWs1.32 (0.8-1.2cm) M-Mode DIMENSIONS Left Atrium (MM)4.28 (2.5-4.0cm)IVSd0.78 (0.7-1.1cm) Aortic Root3.38 (2.2-3.7cm)LVDd6.50 (4.0-5.6cm) Aortic Cusp Exc.1.25 (1.5-2.0cm)PWd0.97 (0.7-1.1cm) IVSs1.56 cmFS (%) 46 % LVDs3.50 (2.0-3.8cm)PWs1.63 cm Aortic Valve AoV Peak Npaqngdx619.2cm/sAoV VTI47.7cmAO Peak GR.26mmHg LVOT Peak Asicdqpo501.9cm/sLVOT VTI22.26cmAO Mean GR.14mmHg LEIGH ANN (VMAX)0.70hn1DSK (VTI)0.60cm2 Mitral Valve MV E Hcpvqrnm77.6cm/sMV DECEL [id number] A Cfoukewm236.5cm/s MV JUL93loL/A ratio0.6MVA (PHT)2.60cm2 TDI Lateral E' Peak V11.00cm/sMedial E' Peak V7.01cm/sE/Lateral E'6.2 E/Medial E'9.8 Pulmonary Valve PV Peak Vyqbmkjz098.5cm/s LEFT VENTRICLE The left ventricle is normal size. There is normal left ventricular wall thickness. The left ventricular ejection fraction is within the normal range. Mild Septal hypokinesis Transmitral Doppler flow pattern is Grade I-abnormal relaxation pattern. No left ventricle thrombus noted on this study. RIGHT VENTRICLE The right ventricle is normal size. There is normal right ventricular wall thickness. The right ventricular systolic function is normal. ATRIA The left atrium is borderline dilated. The right atrium size is normal. AORTIC VALVE The aortic valve is not well visualized. No aortic regurgitation is present. There is mild valvular aortic stenosis. MITRAL VALVE The mitral valve is not well visualized. There is no mitral valve stenosis. There is no mitral valve regurgitation noted. TRICUSPID VALVE The tricuspid valve is normal in structure. There is no tricuspid valve regurgitation noted. PULMONIC VALVE The pulmonary valve is normal in structure. There is no pulmonic valvular regurgitation. GREAT VESSELS The aortic root is normal in size. The IVC was not visualized. PERICARDIAL EFFUSION There is a trace loculated anterior pericardial effusion. <Conclusion> The left ventricle is normal size. There is normal left ventricular wall thickness. The left ventricular ejection fraction is within the normal range. Mild Septal hypokinesis Transmitral Doppler flow pattern is Grade I-abnormal relaxation pattern. There is mild valvular aortic stenosis.
[2017-09-10] MEDS ORDERED: UMECLIDINIUM BROMIDE 62.5 MCG IH SCH (22:00)
--- NOTE | 2017-09-10 22:01 | CARD ---
APPROVED REPORT EKG Measurement Heart [id number] IA [id number] [id number] <Conclusion> Normal sinus rhythm Right bundle branch block Inferior infarct, age undetermined Abnormal ECG
[2017-09-11 07:47] VITALS: BP 137/73; PULSE 64; RESP 18; TEMP 98.4; O2SAT 94
--- NOTE | 2017-09-11 08:30 | CP.PCM.PN ---
<Veronica Kang - Last Filed: 09/11/17 11:54> Subjective - Date & Time of Evaluation Date of Evaluation: 09/11/17 Time of Evaluation: 07:10 - Subjective Subjective: Pt seen and evaluated this am with attending; appeared anxious over his chest pain. Objective - Vital Signs/Intake and Output Vital Signs (last 24 hours): Temp Pulse Resp BP Pulse Ox 98.4 F 64 18 137/73 94 L 09/11/17 07:46 09/11/17 07:46 09/11/17 07:46 09/11/17 07:46 09/11/17 07:46 Intake and Output: 09/11/17 09/11/17 06:59 18:59 Intake Total 1000 Balance 1000 - Medications Medications: Current Medications Acetaminophen (Tylenol 325mg Tab) 650 mg PO Q6 PRN PRN Reason: Headache Last Admin: 09/09/17 14:23 Dose: 650 mg Albuterol/Ipratropium (Duoneb 3 Mg/0.5 Mg (3 Ml) Ud) 3 ml INH RQ4 PRN PRN Reason: Shortness of Breath Aspirin (Ecotrin) 81 mg PO DAILY [facility] Last Admin: 09/10/17 09:31 Dose: 81 mg Atorvastatin Calcium (Lipitor) 20 mg PO DAILY [facility] Last Admin: 09/10/17 09:33 Dose: 20 mg Enalapril Maleate (Vasotec) 10 mg PO DAILY [facility] Last Admin: 09/10/17 09:36 Dose: 10 mg Enoxaparin Sodium (Lovenox) 40 mg SC DAILY [facility] PRN Reason: Protocol Last Admin: 09/10/17 09:33 Dose: 40 mg Home Med (Fluticasone/Vilanterol [Breo Ellipta 100-25 Mcg Inh]) 1 each IH DAILY [facility] Last Admin: 09/10/17 09:32 Dose: 1 each Home Med (Umeclidinium [place] [Incruse Ellipta]) 62.5 mcg IH HS [facility] Last Admin: 09/10/17 22:09 Dose: 62.5 mcg Metoprolol Succinate (Toprol Xl) 50 mg PO DAILY [facility] Last Admin: 09/10/17 09:36 Dose: 50 mg Ondansetron HCl (Zofran Inj) 4 mg IVP Q6 PRN PRN Reason: Nausea/Vomiting Last Admin: 09/10/17 14:56 Dose: 4 mg Pantoprazole Sodium (Protonix Ec Tab) 40 mg PO DAILY [facility] Last Admin: 09/10/17 09:35 Dose: 40 mg Paroxetine HCl (Paxil) 10 mg PO DAILY [facility] Last Admin: 09/10/17 15:00 Dose: 10 mg Simethicone (Mylicon Chew Tab) 80 mg PO TID [facility] Last Admin: 09/10/17 17:33 Dose: 80 mg - Labs Labs: 09/08/17 08:30 09/09/17 07:01 - Constitutional Appears: No Acute Distress - Head Exam Head Exam: NORMAL INSPECTION - ENT Exam ENT Exam: Mucous Membranes Moist - Respiratory Exam Respiratory Exam: Chest Wall Tenderness, Wheezes (scattered). absent: Respiratory Distress - Cardiovascular Exam Cardiovascular Exam: REGULAR RHYTHM, +S1, +S2 - GI/Abdominal Exam GI & Abdominal Exam: Soft, Tenderness (epigastric), Normal Bowel Sounds - Extremities Exam Extremities Exam: Normal Inspection - Neurological Exam Neurological Exam: Alert, Awake Assessment and Plan - Assessment and Plan (Free Text) Assessment: 87 yo M with PMHx of CAD, HTN admitted due to chest pain and to r/o ACS. Echo complete; pending cardiac clearance. Also complained of epigastric pain despite being on PPI and antacids; GI consulted; pending GI consult. 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 Leiva # COPD Restarted in home meds Duonebs x1 LABA + Inhaled steroid # Depression Pt reports feeling very sad for weeks after the his Spoke with son yesterday, who believe his father was depressed Started on Paxil 10mg daily No suicidal/homicidal ideations # CAD Last lexican 3 y/a: Good exercise tolerance, old IWMI, EF 72% Current symptoms unlike related to CAD Continue with ACEi, ASA and BB Cardiology Consuled Echo complete # HTN, chronic Continue with home meds Stable Monitor BP # Trombocytopenia Chronic Mild NO active bleeding Monitor # DVT prophylaxis Lovenox 40 mg daily <Christian Gan - Last Filed: 09/11/17 19:13> Objective - Vital Signs/Intake and Output Vital Signs (last 24 hours): Temp Pulse Resp BP Pulse Ox 98.4 F 64 18 137/73 94 L 09/11/17 07:46 09/11/17 08:42 09/11/17 07:46 09/11/17 08:42 09/11/17 07:46 - Labs Labs: 09/08/17 08:30 09/09/17 07:01 Attending/Attestation - Attestation I have personally seen and examined this patient.: Yes I have fully participated in the care of the patient.: Yes I have reviewed all pertinent clinical information, including history, physical exam and plan: Yes
[2017-09-11] MEDS: Simethicone 80 mg Chewtab PO SCH (08:41)
[2017-09-11] MEDS: Metoprolol Succinate 50 mg XL Tab PO SCH (08:42)
[2017-09-11] MEDS: Pantoprazole 40 mg EC Tab PO SCH (08:42)
[2017-09-11] MEDS: Enoxaparin 40 mg Syringe SC SCH (08:43)
[2017-09-11] MEDS: FLUTICASONE IH SCH (08:45)
[2017-09-11] MEDS: VILANTEROL IH SCH (08:45)
--- NOTE | 2017-09-11 09:04 | CP.PCM.PN ---
Subjective - Date & Time of Evaluation Date of Evaluation: 09/11/17 Time of Evaluation: 09:00 - Subjective Subjective: Still despondent but improving Vital signs stable Echo images reviewed LV syst function normal AO valve mildly stenotic Pt stable to go home Will see me in 10days from D/C Objective - Vital Signs/Intake and Output Vital Signs (last 24 hours): Temp Pulse Resp BP Pulse Ox 98.4 F 64 18 137/73 94 L 09/11/17 07:46 09/11/17 08:42 09/11/17 07:46 09/11/17 08:42 09/11/17 07:46 Intake and Output: 09/11/17 09/11/17 06:59 18:59 Intake Total 1000 Balance 1000 - Medications Medications: Current Medications Acetaminophen (Tylenol 325mg Tab) 650 mg PO Q6 PRN PRN Reason: Headache Last Admin: 09/09/17 14:23 Dose: 650 mg Albuterol/Ipratropium (Duoneb 3 Mg/0.5 Mg (3 Ml) Ud) 3 ml INH RQ4 PRN PRN Reason: Shortness of Breath Aspirin (Ecotrin) 81 mg PO [facility]ILY [facility] Last Admin: 09/11/17 08:41 Dose: 81 mg Atorvastatin Calcium (Lipitor) 20 mg PO DAILY [facility] Last Admin: 09/11/17 08:42 Dose: 20 mg Enalapril Maleate (Vasotec) 10 mg PO DAILY [facility] Last Admin: 09/11/17 08:42 Dose: 10 mg Enoxaparin Sodium (Lovenox) 40 mg SC DAILY [facility] PRN Reason: Protocol Last Admin: 09/11/17 08:43 Dose: 40 mg Home Med (Fluticasone/Vilanterol [Breo Ellipta 100-25 Mcg Inh]) 1 each IH DAILY [facility] Last Admin: 09/11/17 08:45 Dose: 1 each Home Med (Umeclidinium [place] [Incruse Ellipta]) 62.5 mcg IH HS [facility] Last Admin: 09/10/17 22:09 Dose: 62.5 mcg Metoprolol Succinate (Toprol Xl) 50 mg PO DAILY [facility] Last Admin: 09/11/17 08:42 Dose: 50 mg Ondansetron HCl (Zofran Inj) 4 mg IVP Q6 PRN PRN Reason: Nausea/Vomiting Last Admin: 09/10/17 14:56 Dose: 4 mg Pantoprazole Sodium (Protonix Ec Tab) 40 mg PO DAILY [facility] Last Admin: 09/11/17 08:42 Dose: 40 mg Paroxetine HCl (Paxil) 10 mg PO DAILY [facility] Last Admin: 09/11/17 08:41 Dose: 10 mg Simethicone (Mylicon Chew Tab) 80 mg PO TID [facility] Last Admin: 09/11/17 08:41 Dose: 80 mg - Labs Labs: 09/08/17 08:30 09/09/17 07:01
--- NOTE | 2017-09-11 10:55 | PQF GENQUE ---
Dr. Ruiz, Etiology of Chest Pain ? if known after the work up is completed OR: Unable to determine 09/09 Cardiac consult: dxs. 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 Indicators present [] Specify: [] [] Specify: [] [] Specify: [] [] Specify: [] Location in the medical record that reflects the above clinical findings: [] Treatment Provided: [] PHYSICIAN'S RESPONSE Based on your medical judgment of the clinical indicators outlined above please clarify the following: [] Practitioner response After workup Pt had Gastric reflux and costochondritis [] If unable to determine, please check the box, sign and date. Present On Admission (POA) Indicator: [] Present at the time of admission [] Not present at the time of admission [] Clinically Undetermined In responding to this query, please exercise your independent professional judgment. The fact that a question is asked does not imply that any particular answer is desired or expected. Thank you for your clarification on this documentation. If you have any questions please call. * Thank you, Letty Gandhi RN ext. #[phone] MTDD
--- NOTE | 2017-09-11 11:18 | CP.PCM.DIS ---
<Veronica Kang - Last Filed: 09/11/17 11:52> Provider - Provider Date of Admission: 09/09/17 11:41 Attending physician: Pietro Ruiz MD Primary care physician: Dr. Ruiz Consults: Cardiology- Dr. Inman Certified Low Vision Therapist- Dr. Leiva Time Spent in preparation of Discharge (in minutes): 35 Diagnosis - Discharge Diagnosis (1) Acid reflux Status: Chronic Comment: Likely etiology of chest pain. Cardiac cause of chest pain unlikely, pt cleared by cardiology. Chest discomfort likely due to acid reflux; patient seen by Dr. Leiva morning of discharge. As per pt's RN Marcy, Dr. Leiva cleared patient for discharge and advised outpatient follow up. (2) ACS (acute coronary syndrome) Status: Ruled-out Comment: Pt presented with chest pain- seen by collateral specialist Dr. Inman. Three negative troponins, normal EKG. ACS ruled out. Echocardiogram reviewed by Dr. Inman- LV systolic function normal and AO valve mildly stenotic. Pt cleared for discharge and should follow up with Dr. Inman in 10 days. Hospital Course - Lab Results Lab Results: Most Recent Lab Values WBC 9.9 K/uL (4.8-10.8) 09/08/17 08:30 RBC 4.86 Mil/uL (4.40-5.90) 09/08/17 08:30 Hgb 14.6 g/dL (12.0-18.0) 09/08/17 08:30 Hct 43.6 % (35.0-51.0) 09/08/17 08:30 MCV 89.8 fl (80.0-94.0) 09/08/17 08:30 MCH 30.1 pg (27.0-31.0) 09/08/17 08:30 MCHC 33.5 g/dL (33.0-37.0) 09/08/17 08:30 RDW 15.4 % (11.5-14.5) H 09/08/17 08:30 Plt Count 118 K/uL (130-400) L D 09/08/17 08:30 MPV 9.0 fl (7.2-11.7) 09/08/17 08:30 Neut % (Auto) 41.7 % (50.0-75.0) L 09/08/17 08:30 Lymph % (Auto) 49.2 % (20.0-40.0) H 09/08/17 08:30 [place] % (Auto) 6.2 % (0.0-10.0) 09/08/17 08:30 Eos % (Auto) 2.1 % (0.0-4.0) 09/08/17 08:30 Baso % (Auto) 0.8 % (0.0-2.0) 09/08/17 08:30 Neut # (Auto) 4.1 K/uL (1.8-7.0) 09/08/17 08:30 Lymph # (Auto) 4.9 K/uL (1.0-4.3) H 09/08/17 08:30 [place] # (Auto) 0.6 K/uL (0.0-0.8) 09/08/17 08:30 Eos # (Auto) 0.2 K/uL (0.0-0.7) 09/08/17 08:30 Baso # (Auto) 0.1 K/uL (0.0-0.2) 09/08/17 08:30 Sodium 144 mmol/l (132-148) 09/09/17 07:01 Potassium 4.5 MMOL/L (3.6-5.0) 09/09/17 07:01 Chloride 99 mmol/L (98-107) 09/09/17 07:01 Carbon Dioxide 32 mmol/L (22-30) H 09/09/17 07:01 Anion Gap 18 (10-20) 09/09/17 07:01 BUN 14 mg/dl (9-20) 09/09/17 07:01 Creatinine 1.0 mg/dl (0.8-1.5) 09/09/17 07:01 Est GFR ( Amer) > 60 09/09/17 07:01 Est GFR (Non-Af Amer) > 60 09/09/17 07:01 POC Glucose (mg/dL) 101 mg/dL (65-110) 09/09/17 16:47 Random Glucose 114 mg/dL (75-110) H 09/09/17 07:01 Calcium 9.6 mg/dL (8.4-10.2) 09/09/17 07:01 Total Bilirubin 0.6 mg/dl (0.2-1.3) 09/08/17 08:30 AST 24 U/L (17-59) 09/08/17 08:30 ALT 34 U/L (21-72) 09/08/17 08:30 Alkaline Phosphatase 66 U/L (38-126) 09/08/17 08:30 Troponin I 0.0130 ng/mL (0.00-0.120) 09/10/17 13:52 Total Protein 7.2 G/DL (6.3-8.2) 09/08/17 08:30 Albumin 4.1 g/dL (3.5-5.0) 09/08/17 08:30 Globulin 3.1 gm/dL (2.2-3.9) 09/08/17 08:30 Albumin/Globulin Ratio 1.3 (1.0-2.1) 09/08/17 08:30 Amylase 56 U/L (30-110) 09/10/17 13:52 Lipase 16 U/L (23-300) L 09/10/17 13:52 - Hospital Course Hospital Course: 87 yo M with significant cardiac hx (CAD, HTN, and HLD, CABG) who was admitted with chest pain and to rule out ACS. Cardiology consult - Dr. Inman. Three negative troponins, normal EKG. Echocardiogram reviewed by Dr. Inman- LV systolic function normal and AO valve mildly stenotic. As per Dr. Inman, ACS ruled out, pt can be discharged and should follow up with him in 10 days. Given pt's symptoms and cardiac cause of chest pain being unlikely, acid reflux/gerd was suspected; GI consult Dr. Leiva saw patient this morning. As per pt's RN Marcy, Dr. Leiva cleared patient for discharge and advised outpatient follow up. Pt has private GI he sees as well. Pt will be discharged home with prescription for zantac 150 mg twice daily, and will follow up with his private established GI or Dr. Leiva within 1 week. Of note, patient lost his of more than 60 years within the past two weeks; he is grieving. Low dose paxil was started on this admission. Medications zantac and paxil sent to pt's preferred pharmacy. Originally pt was also to get prescription for albuterol rescue inhaler, but pt' s son stated he has one at home and just didn't bring it to the hospital. Plan (new medications paxil and zantac, and follow up appts with Dr. Ruiz, Dr. Inman and GI doctor of choice) discussed with patient and patient's son in the room; understanding verbalized by patient's son and patient in agreement as well. Discharge Exam - Head Exam Head Exam: NORMAL INSPECTION - Eye Exam Eye Exam: Normal appearance - ENT Exam ENT Exam: Mucous Membranes Moist - Respiratory Exam Respiratory Exam: Chest Wall Tenderness, Wheezes (mild scattered), NORMAL BREATHING PATTERN, UNREMARKABLE. absent: Rales, Stridor - Cardiovascular Exam Cardiovascular Exam: RRR, +S1, +S2 - GI/Abdominal Exam GI & Abdominal Exam: Normal Bowel Sounds, Soft - Extremities Exam Extremities exam: normal inspection - Neurological Exam Neurological exam: Alert - Skin Skin Exam: Dry, Normal Color, Warm Discharge Plan - Discharge Medications Prescriptions: Albuterol HFA [Ventolin HFA 90 mcg/actuation (8 g)] 1 puff IH PRN PRN #1 inhaler PRN Reason: Shortness Of Breath PARoxetine [Paxil] 10 mg PO DAILY #30 tab Ranitidine HCl [Zantac] 150 mg PO BID #60 tablet - Follow Up Plan Condition: STABLE Disposition: HOME/ ROUTINE Patient education suggested?: Yes Instructions: Chest Pain, Acid Reflux (Gastroesophageal Reflux Disease), Adult (DC) Additional Instructions: Please follow up with Dr. Ruzi in 1 week. Please follow up with collateral specialist Dr. Inman in 1 week- 10 days. Please follow up with Dr. Leiva or your private gastroenterolist (GI) doctor in 1 week. Avoid foods like tomatoes, tomato sauce, wine, coffee, or other acid/sour/spicy foods. Avoid eating for 3 hours before bed/laying down to rest/sleep. When you take aspirin, take it with food and water. Return to ED if you have new onset chest pain. Referrals: Merrill Inman MD [Staff Provider] - (Please follow up in 1 week- 10 days.) Pietro Ruiz MD [Family Provider] - (Please follow up in 1 week.) Kayden Leiva MD, PhD [Staff Provider] - <Christian Gan - Last Filed: 03/27/18 19:13> Provider - Provider Date of Admission: 09/09/17 11:41 Attending physician: Pietro Ruiz MD Hospital Course - Lab Results Lab Results: Most Recent Lab Values WBC 9.9 K/uL (4.8-10.8) 09/08/17 08:30 RBC 4.86 Mil/uL (4.40-5.90) 09/08/17 08:30 Hgb 14.6 g/dL (12.0-18.0) 09/08/17 08:30 Hct 43.6 % (35.0-51.0) 09/08/17 08:30 MCV 89.8 fl (80.0-94.0) 09/08/17 08:30 MCH 30.1 pg (27.0-31.0) 09/08/17 08:30 MCHC 33.5 g/dL (33.0-37.0) 09/08/17 08:30 RDW 15.4 % (11.5-14.5) H 09/08/17 08:30 Plt Count 118 K/uL (130-400) L D 09/08/17 08:30 MPV 9.0 fl (7.2-11.7) 09/08/17 08:30 Neut % (Auto) 41.7 % (50.0-75.0) L 09/08/17 08:30 Lymph % (Auto) 49.2 % (20.0-40.0) H 09/08/17 08:30 [place] % (Auto) 6.2 % (0.0-10.0) 09/08/17 08:30 Eos % (Auto) 2.1 % (0.0-4.0) 09/08/17 08:30 Baso % (Auto) 0.8 % (0.0-2.0) 09/08/17 08:30 Neut # (Auto) 4.1 K/uL (1.8-7.0) 09/08/17 08:30 Lymph # (Auto) 4.9 K/uL (1.0-4.3) H 09/08/17 08:30 [place] # (Auto) 0.6 K/uL (0.0-0.8) 09/08/17 08:30 Eos # (Auto) 0.2 K/uL (0.0-0.7) 09/08/17 08:30 Baso # (Auto) 0.1 K/uL (0.0-0.2) 09/08/17 08:30 Sodium 144 mmol/l (132-148) 09/09/17 07:01 Potassium 4.5 MMOL/L (3.6-5.0) 09/09/17 07:01 Chloride 99 mmol/L (98-107) 09/09/17 07:01 Carbon Dioxide 32 mmol/L (22-30) H 09/09/17 07:01 Anion Gap 18 (10-20) 09/09/17 07:01 BUN 14 mg/dl (9-20) 09/09/17 07:01 Creatinine 1.0 mg/dl (0.8-1.5) 09/09/17 07:01 Est GFR ( Amer) > 60 09/09/17 07:01 Est GFR (Non-Af Amer) > 60 09/09/17 07:01 POC Glucose (mg/dL) 101 mg/dL (65-110) 09/09/17 16:47 Random Glucose 114 mg/dL (75-110) H 09/09/17 07:01 Calcium 9.6 mg/dL (8.4-10.2) 09/09/17 07:01 Total Bilirubin 0.6 mg/dl (0.2-1.3) 09/08/17 08:30 AST 24 U/L (17-59) 09/08/17 08:30 ALT 34 U/L (21-72) 09/08/17 08:30 Alkaline Phosphatase 66 U/L (38-126) 09/08/17 08:30 Troponin I 0.0130 ng/mL (0.00-0.120) 09/10/17 13:52 Total Protein 7.2 G/DL (6.3-8.2) 09/08/17 08:30 Albumin 4.1 g/dL (3.5-5.0) 09/08/17 08:30 Globulin 3.1 gm/dL (2.2-3.9) 09/08/17 08:30 Albumin/Globulin Ratio 1.3 (1.0-2.1) 09/08/17 08:30 Amylase 56 U/L (30-110) 09/10/17 13:52 Lipase 16 U/L (23-300) L 09/10/17 13:52 Attending/Attestation - Attestation I have personally seen and examined this patient.: Yes I have fully participated in the care of the patient.: Yes I have reviewed all pertinent clinical information, including history, physical exam and plan: Yes
--- NOTE | 2017-09-11 13:43 | CON ---
DATE: 09/11/2017 REFERRING PHYSICIAN: Alina Gómez MD REASON FOR CONSULTATION: Abdominal pain and chest pain. HISTORY OF PRESENT ILLNESS: This is a mark 87-year-old man with history of CAD, hypertension, and hyperlipidemia who also comes in heartburn, abdominal pain and chest pain as well in the past. Basically, his recently and he is feeling depressed. At this point, he was better, tolerating full diet. He has no heartburn, no weight loss, lying in bed comfortably, and in no apparent distress. PAST MEDICAL HISTORY: As above. PAST SURGICAL HISTORY: As above. MEDICATIONS: Have been reviewed. REVIEW OF SYSTEMS: All other systems have been reviewed and negative apart from the HPI. PHYSICAL EXAMINATION VITAL SIGNS: Here in the hospital are grossly unremarkable. GENERAL: A pleasant elderly-appearing male, lying in bed comfortably, and in no apparent distress. HEENT: Head is normocephalic and atraumatic. Eyes; pupils are equally reactive to light bilaterally. No conjunctival pallor or icterus. NECK: Supple. Normal range of motion. No lymphadenopathy appreciated. LUNGS: Coarse breath sounds bilaterally. HEART: S1 and S2, regular rate and rhythm. No murmurs appreciated. ABDOMEN: Soft and nontender. Bowel sound is present. No rebound. No guarding. RECTAL: Deferred. EXTREMITIES: Pulses present bilaterally. SKIN: Warm, dry and intact. NEUROLOGIC: A and O x3. LABORATORY DATA: Labs and radiology have been reviewed. WBC is 9.9, hemoglobin is 14.6, and hematocrit is 43.6. is normal. ASSESSMENT AND PLAN: This is an 87-year-old male with chest pain, abdominal pain, and cardiac workup in progress. From gastrointestinal standpoint, the patient is resolved. I recommend outpatient endoscopy. Thank you for the consult. Kayden Leiva MD/ PhD cc: .
== END 2017-09-11 12:52 | disposition home or self-care (01) | DRG 392 ==
LOC: H.ER 07:36 → H.ERHOLD 12:10 → H.TEL 14:57 → OBSVTOIN 09-09 11:41
PROVIDERS: ADMIT Family Medicine; ATTEND Family Medicine
DX: K21.9 Gastro-esophageal reflux disease without esophagitis (principal); J44.0 Chronic obstructive pulmonary disease with (acute) lower respiratory infection; Z95.1 Presence of aortocoronary bypass graft; J20.9 Acute bronchitis, unspecified; E78.00 Pure hypercholesterolemia, unspecified; Z87.891 Personal history of nicotine dependence; Z90.49 Acquired absence of other specified parts of digestive tract; M25.50 Pain in unspecified joint; R01.1 Cardiac murmur, unspecified; E78.5 Hyperlipidemia, unspecified; F32.9 Major depressive disorder, single episode, unspecified; I10 Essential (primary) hypertension; I25.10 Atherosclerotic heart disease of native coronary artery without angina pectoris

== ENCOUNTER 2018-09-09 09:22 | Emergency (ER) | payer MEDICARE ==
[2018-09-09 09:30] VITALS: BMI 38.7
--- NOTE | 2018-09-09 09:55 | ED PDOC ---
HPI: Chest Pain Time Seen by Provider: 09/09/18 09:44 Chief Complaint (Provider): Chest tightness History Per: Patient History/Exam Limitations: no limitations Onset/Duration Of Symptoms: Persistent (1 week) Current Symptoms Are (Timing): Still Present Quality: Tightness Additional Complaint(s): 88yo male with history of CAD s/p CABG, comes to ER reporting chest tightness across his chest, present intermittently x 1 week. He was recently hospitalized for the same complaint. Patient otherwise denies any associated cough or shortness of breath. He has not taken any medications to alleviate his symptoms. PMD: Dr. Ruiz Past Medical History Reviewed: Historical Data, Nursing Documentation, Vital Signs Vital Signs: Last Vital Signs Temp 96.3 F L 09/09/18 09:30 Pulse 65 09/09/18 09:30 Resp 17 09/09/18 09:30 BP 160/78 H 09/09/18 09:30 Pulse Ox 97 09/09/18 09:30 - Medical History PMH: Bronchitis, CAD, COPD, Emphysema, HTN, Hypercholesterolemia Denies: HIV, Pneumonia, Chronic Kidney Disease - Surgical History Surgical History: CABG, Cholecystectomy - Family History Family History: States: Unknown Family Hx - Home Medications Home Medications: Ambulatory Orders Medication Instructions Recorded Aspirin [Aspirin EC] 81 mg PO DAILY 09/27/14 Metoprolol Succinate XL [Toprol XL] 50 mg PO DAILY 09/27/14 Simvastatin [Zocor] 40 mg PO HS 10/14/16 Fluticasone/Vilanterol [Breo 1 puff IH DAILY 09/09/17 Ellipta 100-25 Mcg INH] Umeclidinium [place] [Incruse 1 puff IH HS 09/09/17 Ellipta] Enalapril Maleate [Vasotec] 5 mg PO BID 09/02/18 Finasteride [Proscar] 5 mg PO HS 09/02/18 Lipase/Protease/Amylase [Zenpep Dr 1 cap PO TID 09/02/18 20,000 Unit Capsule] Terazosin [Hytrin] 5 mg PO HS 09/02/18 Vit A/Vit C/Vit E/Zinc/Copper 1 cap PO DAILY 09/02/18 [Icaps Areds Softgel] - Allergies Allergies/Adverse Reactions: Allergies Allergy/AdvReac Type Severity Reaction Status Date / Time No Known Allergies Allergy Verified 06/26/17 00:57 Review of Systems ROS Statement: Except As Marked, All Systems Reviewed And Found Negative Cardiovascular: Positive for: Other (chest tightness) Respiratory: Negative for: Cough, Shortness of Breath Physical Exam - Reviewed Nursing Documentation Reviewed: Yes Vital Signs Reviewed: Yes - Physical Exam Appears: Positive for: Non-toxic, No Acute Distress Head Exam: Positive for: ATRAUMATIC, NORMAL INSPECTION, NORMOCEPHALIC Skin: Positive for: Normal Color Eye Exam: Positive for: EOMI, PERRL Neck: Positive for: Supple Cardiovascular/Chest: Positive for: Regular Rate, Rhythm, Murmur (2/6 systolic murmur) Respiratory: Positive for: Normal Breath Sounds. Negative for: Wheezing Gastrointestinal/Abdominal: Positive for: Soft Extremity: Positive for: Pedal Edema (1+ pitting edema bilateral lower extremities) Neurological/Psych: Positive for: Awake, Alert, Normal Tone, Oriented (x 3) - ECG ECG: Positive for: Interpreted By Me, Viewed By Me ECG Rhythm: Positive for: Sinus Rhythm, Right Bundle Branch Block. Negative for: ST/T Changes Interpretation Of ECG: No changes compared to EKG on 09/03 Rate: 64 O2 Sat by Pulse Oximetry: 97 (RA) Pulse Ox Interpretation: Normal Medical Decision Making Medical Decision Makinyo male, comes with complaint of chest tightness x 1 week plan: -- Labs -- EKG [address] Inman, who will arrange outpatient nuclear stress test. Currently patient is pending troponin result. Discussed with DR. Inman and son. If Troponin nl can dc and DR. Inman will arrange for outpt nuclear stress test Scribe Attestation: Documented by Tracy Villafana, acting as a scribe for Travis Watkins MD. Provider Scribe Attestation: All medical record entries made by the Scribe were at my direction and personally dictated by me. I have reviewed the chart and agree that the record accurately reflects my personal performance of the history, physical exam, medical decision making, and the department course for this patient. I have also personally directed, reviewed, and agree with the discharge instructions and disposition. Disposition - Clinical Impression Clinical Impression: Chest pain - Patient ED Disposition Is Patient to be Admitted: No - Disposition Referrals: Merrill Inman MD [Staff Provider] - Disposition: Routine/Home Disposition Time: 12:02 Condition: FAIR Instructions: Chest Pain
[2018-09-09 13:15] VITALS: BP 155/78; PULSE 66; RESP 18; TEMP 98.8; O2SAT 96
== END 2018-09-09 12:54 | disposition home or self-care (01) ==
LOC: H.ER 09:22
DX: R07.9 Chest pain, unspecified (principal); I10 Essential (primary) hypertension; J43.9 Emphysema, unspecified; Z95.1 Presence of aortocoronary bypass graft; I25.10 Atherosclerotic heart disease of native coronary artery without angina pectoris